=== PATIENT | female | born 1950 | race Native Hawaiian/Other Pacific Islander ===

== ENCOUNTER 2019-02-28 09:30 | Outpatient (CLI) | payer OTHER ==
[~2019-02-28 09:30] MED LIST: ALBUTEROL0.083 % IN; ALPR1TAB61 PO; ATEN50TA36 PO; CIPRO500 MG PO; CYCL10TA35 PO; ENDOCET1 TA3 PO; FLUC150T PO; FLUTMIS14 INH; FLUTMIS6 INH; MECLIZINE25 MG PO; MICROZIDE12.5 MG PO; NEURONTIN800 MG PO; ZITHROMAX500 MG PO
== END 2019-02-28 09:55 | disposition short-term general hospital (02) ==
LOC: AMB 09:30
DX: R41.82 Altered mental status, unspecified (principal); R53.1 Weakness; S09.8XXA Other specified injuries of head, initial encounter; S59.802A Other specified injuries of left elbow, initial encounter; S59.801A Other specified injuries of right elbow, initial encounter; W18.39XA Other fall on same level, initial encounter; Y93.89 Activity, other specified; Y92.018 Other place in single-family (private) house as the place of occurrence of the external cause
CPT/HCPCS: A0425; A0427

== ENCOUNTER 2020-08-19 10:11 | Inpatient (IN) | payer OTHER ==
[2020-08-19] VITALS (13 sets, daily range): BP systolic 95–130; BP diastolic 43–92; TEMP 97.6–98.7; Ht 165.1 cm; Wt 75.0 kg
[~2020-08-19] VITALS: Ht 165.1 cm; Wt 75.0 kg
[2020-08-19 10:50] LABS: PLATELET COUNT 372 K/uL (152-353)
[2020-08-19 11:10] LABS: POTASSIUM 4.2 mmol/L (3.6-5.2); SODIUM 131 mmol/L (136-145)
[2020-08-19] MEDS ORDERED: ALBUTEROL0.083 % INH (15:15)
[2020-08-19] MEDS ORDERED: NEURONTIN800 MG PO (15:15)
[2020-08-19] MEDS ORDERED: REMERON SOLTAB30 MG PO (15:18)
[2020-08-19] MEDS ORDERED: FUROSEMIDE20 MG PO (15:32)
[2020-08-19] MEDS ORDERED: MOBIC7.5 M1 PO (15:32)
[2020-08-19] MEDS ORDERED: ATEN50TA36 PO ×2 (15:34)
[2020-08-19] MEDS ORDERED: HYSINGLA ER40 MG PO (15:35)
[2020-08-19] MEDS ORDERED: LYRICA150 MG PO (15:36)
[2020-08-19] MEDS ORDERED: ALPR0.2566 PO (15:36)
[2020-08-20] VITALS (11 sets, daily range): BP systolic 111–152; BP diastolic 54–78; TEMP 97.5–99.2
[2020-08-20 03:32] LABS: PLATELET COUNT 272 K/uL (152-353)
[2020-08-21 03:53] VITALS: BP 129/71; TEMP 98.7
[2020-08-21 05:35] LABS: PLATELET COUNT 284 K/uL (152-353)
[2020-08-21 05:58] LABS: POTASSIUM 4.2 mmol/L (3.6-5.2)
[2020-08-21 08:00] VITALS: BP 122/59; TEMP 97.6
[2020-08-21 12:00] VITALS: BP 106/58; TEMP 97.9
[2020-08-21 16:00] VITALS: BP 100/48; TEMP 98.6
[2020-08-21 20:07] VITALS: BP 96/47; TEMP 98.3
[2020-08-22] VITALS: BP 127/55; TEMP 98.1
[2020-08-22 04:00] VITALS: BP 139/71; TEMP 98.5
[2020-08-22 05:57] LABS: PLATELET COUNT 276 K/uL (152-353)
[2020-08-22 06:25] LABS: POTASSIUM 3.8 mmol/L (3.6-5.2)
[2020-08-22 08:00] VITALS: BP 162/78; TEMP 97.8
[2020-08-22 12:00] VITALS: BP 108/61; TEMP 98
[2020-08-22 16:00] VITALS: BP 142/71; TEMP 97.7
[2020-08-22 20:00] VITALS: BP 167/72; TEMP 98.8
[2020-08-23 00:07] VITALS: BP 146/72; TEMP 98.2
[2020-08-23 04:00] VITALS: BP 148/61; TEMP 98.3
[2020-08-23 05:56] LABS: PLATELET COUNT 299 K/uL (152-353)
[2020-08-23 06:13] LABS: POTASSIUM 3.5 mmol/L (3.6-5.2)
[2020-08-23 08:00] VITALS: BP 166/77; TEMP 98.4
[2020-08-23 12:00] VITALS: BP 136/69; TEMP 98.1
[2020-08-23 16:00] VITALS: BP 139/68; TEMP 98.1
[2020-08-23 20:05] VITALS: BP 144/67; TEMP 98.3
[2020-08-24 00:06] VITALS: BP 142/61; TEMP 98
[2020-08-24 04:00] VITALS: BP 139/71; TEMP 97.6
[2020-08-24 05:57] LABS: PLATELET COUNT 291 K/uL (152-353)
[2020-08-24 06:10] LABS: POTASSIUM 3.5 mmol/L (3.6-5.2)
[2020-08-24 08:00] VITALS: BP 127/69; TEMP 98.1
[2020-08-24 12:00] VITALS: BP 127/69; TEMP 98.1
[2020-08-24 16:00] VITALS: BP 105/48; TEMP 98.6
== END 2020-08-24 14:09 | disposition swing bed (61) | DRG 191 ==
LOC: ED 10:11 → MED/SURG 13:15
PROVIDERS: Family Medicine; ADMIT Family Medicine; ATTEND Family Medicine
DX: J47.0 Bronchiectasis with acute lower respiratory infection (principal); J81.1 Chronic pulmonary edema; J15.1 Pneumonia due to Pseudomonas; E83.42 Hypomagnesemia; K59.09 Other constipation; J32.8 Other chronic sinusitis; R41.81 Age-related cognitive decline; R53.1 Weakness; Z99.81 Dependence on supplemental oxygen; E86.0 Dehydration
CPT/HCPCS: 36415; 80053; 81000; 82550; 82553; 83605; 83735; 84484; 85027; 87040; 87070; 87077; 87205; 87635; 93005; 94640; 94664; 94667; 94668; 94760; 96360; 96365; 96366; 99284; J1650; J1956; J2543; J3475; U0003

== ENCOUNTER 2020-08-24 14:09 | Inpatient (IN) | payer OTHER ==
[~2020-08-24] VITALS: Ht 165.1 cm; Wt 70.5 kg
[~2020-08-24 14:09] MED LIST changes: +ALBUTEROL0.083 % INH; +ALPR0.2566 PO; +FUROSEMIDE20 MG PO; +HYSINGLA ER40 MG PO; +LYRICA150 MG PO; +MOBIC7.5 M1 PO; +REMERON SOLTAB30 MG PO
[2020-08-24 19:53] VITALS: BP 135/63; TEMP 98.6
[2020-08-24 20:31] VITALS: BP 135/63; TEMP 98.6; Ht 165.1 cm; Wt 70.5 kg
[2020-08-24 21:29] VITALS: BP 135/63; TEMP 98.6
--- NOTE | 2020-08-25 04:51 | NUR ---
PATIENT HAS BEEN MORE ALERT AND ORIENTED. PATIENT IS ORIENTED TO SELF AND SITUATION. PATIENT IS ABLE TO MOVE MORE IN THE BED BUT CANNOT PULL HERSELF UP IN BED WITH OUT ASSISTANCT TIMES 2
--- NOTE | 2020-08-25 06:01 | NUR ---
PATIENT CRE SWAB COMPLETED. PATIENT RESTING AT BEDSIDE
[2020-08-25 07:38] VITALS: BP 136/59; TEMP 98.4
--- NOTE | 2020-08-25 09:45 | NUR ---
THERAPY AND PCT AT BEDSIDE, BOTH ASSISTED PATIENT TO SHOWER WITH USE OF WALKER AND STAFF REMAINED AT PATIENT'S SIDE DURING SHOWER. PATIENT TOLERATED WELL. PCT AND THERAPY ASSISTED PATIENT WITH DRYING OFF AND PLACING CLOTHING ON PATIENT. PATIENT BECAME WEAK DURING THIS TIME. MAX ASSIST WITH STAFF WITH TRANSFERRING TO RECLINER AT BEDSIDE. 2LPM NC PLACED ON PATIENT, 22G RFA FLUSHED WITH NS 10ML WITHOUT DIFFICULTY AND NS BEGAN INFUSING @ 30ML/HR WITHOUT DIFFICULTY. PATIENT DENIES ANY PAIN OR BURNING TO SITE, NO REDNESS, EDEMA OR DRAINAGE NOTED TO IV SITE AT THIS TIME. PILLOWS PLACED BEHIND PATIENT'S UPPER TORSO FOR SUPPORT. BEDSIDE TABLE AND CALL LIGHT PLACED WITHIN REACH FOR PATIENT, PATIENT INSTRUCTED TO CALL FOR ANY ASSISTANCE OR NEEDS, PT V/O UNDERSTANDING. NO S/SX OF DISTRESS NOTED DURING THIS TIME.
--- NOTE | 2020-08-25 11:55 | NUR ---
PCT ASSISTED PATIENT WITH TRANSFERRING BACK TO BED X1 PERSON ASSIST. PATIENT TOLERATED WELL. NAD NOTED WITH PATIENT.
--- NOTE | 2020-08-25 16:25 | NUR ---
PATIENT IN LOW FOWLERS POSITION RESTING QUIETLY IN BED WITH EYES CLOSED. NAD NOTED WITH PATIENT.
--- NOTE | 2020-08-25 17:40 | NUR ---
DR. NERI HERE TO SEE PATIENT, NO NEW ORDERS RECEIVED AT THIS TIME.
--- NOTE | 2020-08-25 18:05 | NUR ---
DR. NERI ORDERED PATIENT TO RECEIVE LEVAQUIN AND ZOSYN FOUR (4) MORE DAYS FOR A TOTAL OF TEN (10) DAYS AND D/C ALL ANTIBIOTICS AT THAT TIME, NOTED AND CARRIED OUT. NO NEW ORDERS RECEIVED AT THIS TIME.
[2020-08-25 20:27] VITALS: BP 133/67; TEMP 98.6
--- NOTE | 2020-08-26 00:23 | NUR ---
PATIENTS BREATHING IS STILL CONGESTED BUT THERE IS MARKED IMPROVEMENT. THE PATIENTS LEVEL OF CONSCIOUS HAS IMPROVED.
--- NOTE | 2020-08-26 03:59 | NUR ---
PATIENT IS ABLE TO PULL HERSELF UP IN BED. PATIENT IS MORE ALERT AND ABLE TO RECALL SHE IS IN A HOSPITAL. PATIENT IS ABLE TO ROLL TO THE SIDE TO HELP WITH READJUSTING. PATIENT IS ABLE TO FEED HERSELF. PATIENT HAS DENIED ANY PAIN.
--- NOTE | 2020-08-26 04:00 | NUR ---
2100: LATE GIOVANNI ARREAGA CALLED AND WAS UPDATED. GAVE ORDERS TO DRAW LABS ON MG, CMP, CBC
[2020-08-26 05:19] LABS: PLATELET COUNT 276 K/uL (152-353)
[2020-08-26 05:48] LABS: POTASSIUM 3.7 mmol/L (3.6-5.2)
[2020-08-26 08:00] VITALS: BP 155/73; TEMP 98.1
[2020-08-26 20:00] VITALS: BP 177/64; TEMP 98
--- NOTE | 2020-08-26 20:15 | NUR ---
ENTERED PATIENT'S ROOM. PATIENT LYING IN BED WATCHING TV. NAD NOTED. NC INTACT @ 2L/MIN. 16FR TOMPKINS DRAINING CLEAR, YELLOW URINE TO BEDSIDE. PATIENT HAS 22G TO RIGHT FA. NOTED TO BE LEAKING. I INFORMED PATIENT THAT I WOULD TRY TO LOOK FOR ANOTHER IV SITE. BED LOCKED AND IN LOWEST POSITION. CALL LIGHT WITHIN EASY REACH.
--- NOTE | 2020-08-26 21:40 | NUR ---
TWO ATTEMPTS MADE TO START NEW IV. FIRST ATTEMPT TO LEFT FA UNSUCCESSFUL. SECOND ATTEMPT TO LEFT WRIST SUCCESSFUL WITH 22G. FLUSHED WITH 10CC NS. PATENT AND INTACT. GOOD BLOOD RETURN NOTED. ZOSYN IVPB STARTED. PATIENT TOLERATED WELL. NO CONCERNS OR COMPLAINTS VOICED. BED LOCKED AND IN LOWEST POSITION. CALL LIGHT WITHIN EASY REACH.
--- NOTE | 2020-08-27 06:00 | NUR ---
PATIENT RESTING QUIETLY IN BED WITH EYES CLOSED. NAD NOTED. 22G TO LEFT WRIST FLUSHED WITH NS. PATENT AND INTACT. NO ERYTHEMA OR SWELLING NOTED. ZOSYN IVPB STARTED AT THIS TIME. BED LOCKED AND IN LOWEST POSITION. CALL LIGHT WITHIN EASY REACH.
[2020-08-27 08:00] VITALS: BP 157/78; TEMP 97.6
[2020-08-27 19:53] VITALS: BP 128/69; TEMP 98.1
--- NOTE | 2020-08-28 06:00 | NUR ---
PATIENT RESTING QUIETLY IN BED WITH EYES CLOSED. ZOSYN IVPB STARTED AT THIS TIME. 22G TO LEFT WRIST FLUSHED WITH NS. FLUSHED WELL WITH NO ISSUES. BED LOCKED AND IN LOWEST POSITION. CALL LIGHT WITHIN EASY REACH.
--- NOTE | 2020-08-28 07:45 | NUR ---
UPON ENTERING PATIENT'S ROOM, PATIENT WAS IN SEMI FOWLERS POSITION, RECEIVING OXYGEN VIA NC @ 2LPM, 16F TOMPKINS WITH APPROXIMATELY 250ML OF CLEAR YELLOW URINE IN TOMPKINS CATH BAG AT BEDSIDE. CALL LIGHT AND BEDSIDE TABLE WITH PERSONAL BELONGINGS WITHIN REACH, INSTRUCTED PATIENT TO CALL FOR ANY ASSISTANCE OR NEEDS, PT V/O UNDERSTANDING. PATIENT'S WATER CUP FILLED WITH ICE. PATIENT DENIES ANY OTHER NEEDS, C/O OR PAIN AT THIS TIME. NAD NOTED WITH PATIENT.
[2020-08-28 08:00] VITALS: BP 175/82; TEMP 98.3
--- NOTE | 2020-08-28 09:04 | NUR ---
08/28/20 0815 SITTING UP ON SIDE OF BED ALERT OREINTED.WEARING OXYGEN NAD NOTED.NO C/O VOICED.CC
--- NOTE | 2020-08-28 10:05 | NUR ---
PATIENT REMAINS UP IN BEDSIDE CHAIR WITH CALL LIGHT AND BEDSIDE TABLE WITHIN REACH. PATIENT DENIES ANY PAIN, NEEDS OR C/O AT THIS TIME. SON AT BEDSIDE AND PATIENT SMILING AND CONVERSING WITH HIM.
--- NOTE | 2020-08-28 14:33 | NUR ---
08/28/20 1430 PHYSICAL THERAPY STATED SHE ASSISTED PT BACK TO BED AND DONE VERY WELL DURING HER THERAPY TREATMENT.CALL LIGHT WITHIN REACH.CC
--- NOTE | 2020-08-28 15:10 | NUR ---
RECEIVED NEW ORDERS FROM PHYSICIAN TO BLADDER TRAIN PATIENT AND D/C TOMPKINS, NOTED AND CARRIED OUT.
--- NOTE | 2020-08-28 15:17 | NUR ---
EXPLAINED TO PATIENT WE WILL BEGIN BLADDER TRAINING AT THIS TIME TO REMOVE TOMPKINS CATH AND TOMPKINS IS CLAMPED AT THIS TIME. PATIENT V/O UNDERSTANDING AND DENIES ANY QUESTIONS OR C/O AT THIS TIME. PATIENT IN HIGH FOWLERS POSITION WATCHING TV. PATIENT HAS EXPRESSED HER APPRECIATION FOR THE CARE SHE HAS RECEIVED AND "EVERYONE HAS BEEN SO NICE" TO HER. SHE IS CHEERFUL AND COOPERATIVE WITH STAFF. NAD NOTED WITH PATIENT. OFFERED PATIENT A SNACK, BUT REFUSED AT THIS TIME. CALL LIGHT AND BEDSIDE TABLE WITH PERSONAL BELONGINGS WITHIN REACH. PATIENT INSTRUCTED TO NOTIFY STAFF WHEN SHE FEELS THE URGE TO URINATE, PT V/O UNDERSTANDING.
--- NOTE | 2020-08-28 18:10 | NUR ---
PATIENT'S TOMPKINS UNCLAMPED, ALLOWED URINE TO DRAIN, AND RECLAMPED. PT TOLERATED WELL.
--- NOTE | 2020-08-28 19:50 | NUR ---
TOMPKINS CLAMPED AT THIS TIME. BLADDER TRAINING EDUCATION CARRIED OUT AT THIS TIME. EDUCATED PT TO USE THE CALL LIGHT WHEN PT HAS THE URGE TO URINATE. PT. VERBALIZED UNDERSTANDING.
[2020-08-28 19:53] VITALS: BP 142/72; TEMP 98.1
[2020-08-29 08:00] VITALS: BP 152/75; TEMP 98.1
--- NOTE | 2020-08-29 08:18 | NUR ---
New Swing Bed patient and Fauzia and the IDT met with the patient and was admitted with bilaterla pneumonia, generalized weakness, , COPD, Exacerbation of Bronchitis and is 02 dependent and PT working with for deconditioning., multiple falls, and is on KELLY for bilateral pneumonia, 5'5" at 163 lbs. and is a 70YOF, IBW = 125+/-10% (112 to 138 kbs.)and kcal needs for IBW x 25 = 1400, x 30 = 1700, x 35 = 2000, x 40 = 2300 kcal/day, protein needs x 1.2 to 1.5 = 68 to 85 grams per day and fluids x 25 = 1400, x 30 = 1700, x 35 = 2000 and x 40 = 2300 ml/cc per day and is 130% of IBW and BMI at 27.12 and is overwegiht and also has a dx. of anxiety, and BP at 142/72, levaquin, Colace, Ambien, Miralax, etc.. and RD reviewed all medications. RBC, Hgb, Hct, MCHC all depreseed and CO2 elevated only eating 25% of meals per nursing recordning. ast, alt, tp and alb all depressed 5.8/24. and also has Dx. of vertigo, hyperlipidemia, veritgo, constipation, anemia, and chronic low back pain, OA. Per the patient the pneumonia seems ot be better and she is pleased with the meals, KELLY almost completed. Plans to go home, use to have Home Health Agency. RD recommendations: 1-Monitor Labs 2-Add Beneprotein TID 3-Try and increase protein if will eat to 2 x q meals 4-Add prune juice BID if will take 5-HOnor all food preferneces and state on diet card and offere substitutes with all meals 6-Add Vitamin C 500 mg BID 7-Add a MVI daily 8-Add an appeite stimualtn until eating 75% of meals
--- NOTE | 2020-08-29 08:25 | NUR ---
PT A/O X3 IN NAD AT THIS TIME. SITTING UP IN BED AFTER FINISHING BREAKFAST. PT STATES SHE "FEELS STIFF". ADVENTITIOUS LUNG SOUNDS NOTED, PT STATES THE AMOUNT OF SPUTUM SHE IS COUGHING UP IS LESS THAN ON ADMIT. 22G SL TO LW FLUSHED AND NOTED TO BE PATENT, FREE FROM REDNESS, WARMTH AND DRAINAGE, DRESSING CLEAN, DRY AND INTACT. EDUCATION PROVIDED ON BLADDER TRAINING. PT STATES SHE DOES NOT FEEL THE URGE TO VOID. UNCLAMPED TOMPKINS -325ML CLEAR URINE DRAINED INTO BAG. BAG EMPTIED AND MEASURED, TOMPKINS RECLAMPED. PT ASSISTED ONTO BSC FOR BM. CALL LIGHT PROVIDED, PT REMINDED TO CALL FOR ASSIST BACK TO BED. PT VERBALIZED UNDERSTANDING.
--- NOTE | 2020-08-29 08:37 | NUR ---
PT PROVIDED OWN PERICARE THEN ASSISTED INTO CHAIR BY TECH. PT VERBALIZES DESIRE FOR SHOWER, TECH TO PROVIDE ASSIST.
--- NOTE | 2020-08-29 10:40 | NUR ---
PT CALLED TO HAVE TOMPKINS UNCLAMPED- 200ML CLEAR URINE DRAINED VIA GRAVITY INTO BAG AND THEN TUBING WAS RECLAMPED.
--- NOTE | 2020-08-29 13:00 | NUR ---
PT CALLED TO HAVE TOMPKINS UNCLAMPED. 600ML CLEAR URINE DRAINED INTO GRAVITY BAG. TUBING RECLAMPED.
--- NOTE | 2020-08-29 17:00 | NUR ---
PT CALLED TO HAVE BLADDER UNCLAMPED- 265ML DRAINED INTO BAG THEN WAS RECLAMPED.
--- NOTE | 2020-08-29 17:00 | NUR ---
PT CALLED TO HAVE TOMPKINS TUBING UNCLAMPED. 265ML CLEAR, URINE DRAINED TO GRAVITY BAG. TUBE RECLAMPED.
[2020-08-29 20:06] VITALS: BP 119/62; TEMP 98.3
--- NOTE | 2020-08-30 05:35 | NUR ---
08/29/20 2000: PT AWAKE ALERT, DENIES PAIN AT THIS TIME. NO DISTRESS NOTED. BLADDER TRAINING IN PROGRESS.
--- NOTE | 2020-08-30 05:36 | NUR ---
PT HAS SLEPT WELL DURING THIS SHIFT. NO COMPLAINTS VOICED.
--- NOTE | 2020-08-30 07:30 | NUR ---
TOMPKINS TUBING NOTED TO BE UNCLAMPED, URINE IN BAG. RECLAMPED TUBING AND INSTRUCTIONS GIVEN TO PT TO CALL WHEN SHE FELT THE URGE TO VOID.
--- NOTE | 2020-08-30 07:33 | NUR ---
PT ASSISTED UP TO BSC FOR BM AND HAD INCONTINENT EPISODE ON HERSELF AND THE FLOOR. PT STATES SHE DOESN'T FEEL LIKE SHE HAS UPSET STOMACH AND STATES SHE THINKS SHE WAITED TOO LONG TO GET UP. TECH AT BEDSIDE ASSISTING PT WITH [facility].
[2020-08-30 08:00] VITALS: BP 136/75; TEMP 98.1
--- NOTE | 2020-08-30 11:00 | NUR ---
TUBING UNCLAMPED- PT VOIDED 300CC HAZY, YELLOW URINE AND THEN RECLAMPED.
--- NOTE | 2020-08-30 18:33 | NUR ---
PT SITTING UP IN BED IN NAD AFTER EATING DINNER. PT STATES SHE FEELS BETTER AND ENJOYED HER DINNER. NO NEEDS OR C/O PAIN VERBALIZED AT THIS TIME. CALL LIGHT IN EASY REACH. BED LOW, LOCKED, SR UP X2 FOR SAFETY.
--- NOTE | 2020-08-30 18:50 | NUR ---
BLADDER TRAINING COMPLETED. 16F TOMPKINS DC WITH TIP INTACT- PT CAROLINA WELL. 22G SL TO RYDER Britt WITH TIP INTACT.
[2020-08-30 19:51] VITALS: BP 146/69; TEMP 98.3
--- NOTE | 2020-08-31 00:15 | NUR ---
PATIENT IS RESTING QUIETLY, BREATHS ARE REGULAR NON LABORED
--- NOTE | 2020-08-31 03:57 | NUR ---
PATIENT IS RESTING IN BD. BREATHING IS REGULAR NON LABORED
--- NOTE | 2020-08-31 07:30 | NUR ---
REC'D REPORT FROM SARMAD CLEMONS RN. IN TO CHECK ON PT. PT NOTED TO UP ON BSC AT THIS TIME. PT DENIES ANY C/O OR NEEDS AND STATES "I'LL BE DONE IN A FEW MINUTES AND I'LL CALL" REMINDED PT TO NOT GET UP UNTIL ONE OF US ARE IN HERE. PT CALL LIGHT WITHIN REACH.
--- NOTE | 2020-08-31 07:48 | NUR ---
ASSISTED PT BACK TO BED FROM BSC, EXTENSIVE ASSIST NEEDED TO PIVOT PT FROM BSC TO BED, PT POSITIONED HERSELF UP IN BED CHRISTIANO ASSISTANCE, NAD NOTED, NO FURTHER NEEDS AT THIS TIME, CALL LIGHT WITHIN REACH, WILL CONTINUE TO MONITOR
[2020-08-31 08:00] VITALS: BP 136/64; TEMP 98.1
--- NOTE | 2020-08-31 08:45 | NUR ---
PT AM ASSESSMENT COMPLETED. REKHA NOTED TO BILAT LUNG. PT ALERT AND ORIENTED X4. TRACE AMOUNT OF SWELLING NOTED TO RLE. PEDAL PULSES EQUAL BILAT, RAD PULSE EQUAL BILAT. PT DENIES SOB. PAULINE,RT IN TO GIVE RESP TX. PT TOOK PO MEDS WITHOUT DIFFICULTY.HR NOTED TO BE REGULAR ON AUSCULTATION.
--- NOTE | 2020-08-31 10:00 | NUR ---
SUPERVISED PT PUSHING UP FROM BSC TO WALKER AND AMBULATING BACK TO BED. PT REQUIRED NO ASSISTANCE WITH STANDING OR AMBULATING BACK TO BED. PT REQUIRED NO ASSISTANCE WITH GETTING BACK IN BED. PT ABLE TO PUT LEGS UP ON THE BED HERSELF AND SCOOT UP IN BED HERSELF. NO SET UP HELP GIVEN.
--- NOTE | 2020-08-31 14:00 | NUR ---
PT LAYING IN BED IN HF WITH O2 ON AT 2LPM NC RESTING QUIETLY WITH EYES CLOSED. NAD NOTED. EVEN RISE AND FALL OF CHEST NOTED.
[2020-08-31 20:00] VITALS: BP 160/81; TEMP 97.7
[2020-09-01 08:00] VITALS: BP 165/77; TEMP 97.6
[2020-09-01 20:00] VITALS: BP 149/70; TEMP 97.7
--- NOTE | 2020-09-01 20:40 | NUR ---
PATIENT IS A&O X4 DURING PM ASSESSMENT, PATIENT IS PLEASANT, COOPERATIVE, CHEERFUL AND TALKATIVE WITH STAFF. PATIENT DENIES ANY NEEDS OR C/O AT THIS TIME. PATIENT IN HIGH FOWLERS POSITION AND V/O SHE IS WATCHING A MOVIE. NAD NOTED WITH PATIENT AT THIS TIME.
--- NOTE | 2020-09-01 21:35 | NUR ---
WHILE ADMINISTERING PM MEDICATIONS, PATIENT REQUESTED A XANAX TO HELP HER "RELAX AND REST', SAME PROVIDED AT THIS TIME. WILL CONTINUE TO MONITOR FOR EFFECTIVE THERAPEUTIC TX. CALL LIGHT AND BEDSIDE TABLE WITHIN PATIENT'S REACH. PATIENT INSTRUCTED TO CALL FOR ANY ASSISTANCE OR NEEDS, PT V/O UNDERSTANDING.
[2020-09-02 08:00] VITALS: BP 105/53; TEMP 97.6
--- NOTE | 2020-09-02 09:51 | NUR ---
REACHED OUT TO DR. NERI ABOUT BREAKTHROUGH PAIN MEDS FOR PATIENT. VO GIVEN FOR IBUPROFEN, AND TO CHANGE HYSINGLA TO AM DOSE DAILY. LAB ORDERS ALSO GIVEN.
--- NOTE | 2020-09-02 10:37 | NUR ---
PT ASSISTED UP TO CHAIR TO SIT FOR AWHILE. PT CAROLINA WELL, IN NAD. STATES SHE IS READY TO GO HOME SOON POSSIBLE. PT NOTED TO BE STRONGER WITH TRANSFERS AND HAS INCREASED HER ACTIVITY TO WALKING WITH WALKER AND STANDBY ASSIST TO BATHROOM INSTEAD OF USING A BSC. PT MEALS DELIVERED TO ROOM. PT PROVIDES HER OWN MEAL TRAY SET UP AND FEEDING.
--- NOTE | 2020-09-02 10:58 | NUR ---
PT DID NOT WANT A TX. THIS AM. NO RESPIRATORY DISTRESS NOTED.
[2020-09-02 11:13] LABS: POTASSIUM 4.3 mmol/L (3.6-5.2)
[2020-09-02 19:45] VITALS: BP 152/72; TEMP 97.7
--- NOTE | 2020-09-02 19:50 | NUR ---
PT AWAKE,ALERT, C/O PAIN IN NECK, SHOULDERS,AND GENERALIZED. PT EXPRESSED BEING UPSET ABOUT NOT BEING ABLE TO GO HOME AND HAVING TO WAIT UNTIL NEXT WEEK. PT HAS O2@2LNC. CONTINUE TO HEAR SOME RHONCHI IN LOWER LOBES. PT DENIES RESPIRATORY DISTRESS.
--- NOTE | 2020-09-03 00:09 | NUR ---
PT SLEEPING ON LEFT SIDE. NO DISTRESS NOTED. PT'S RESPIRATIONS UNLABORED.
--- NOTE | 2020-09-03 04:05 | NUR ---
PT RESTING QUIETLY. NO DISTRESS NOTED. RESPIRATIONS UNLABORED.
[2020-09-03 08:00] VITALS: BP 141/58; TEMP 98.2
[2020-09-03 20:00] VITALS: BP 145/80; TEMP 98.1
--- NOTE | 2020-09-04 02:12 | NUR ---
PATIENT IS RESTING QUIETLY, BREATHS ARE ENEN AND NON LABORED
--- NOTE | 2020-09-04 03:23 | NUR ---
PATIENT IS ABLE TO AMBULATE IN BED HERSELF. PATIENT IS STANDBY ASSIST TO THE BSC
--- NOTE | 2020-09-04 04:50 | NUR ---
PATIENT DENIES ANY PAIN. PATIENT EXPRESSES READINESS TO GO HOME
[2020-09-04 07:00] VITALS: BP 161/75; TEMP 97.8
--- NOTE | 2020-09-04 08:50 | NUR ---
AM MEDICATIONS ADMINISTERED TO PATIENT WHOLE WITHOUT DIFFICULTY. PATIENT DENIES ANY NEEDS OR C/O AT THIS TIME. CALL LIGHT WITHIN REACH ALONG WITH BED SIDE TABLE WITH PERSONAL BELONGINGS. PATIENT IN HIGH FOWLERS POSITION WATCHING TV. QUESTIONED PATIENT IF SHE WOULD LIKE TO RECEIVE A SHOWER TODAY, SHE V/O SHE WOULD LET THE STAFF KNOW.
--- NOTE | 2020-09-04 09:45 | NUR ---
PATIENT'S SON, SAQIB, IS AT BEDSIDE WITH PATIENT. PATIENT APPEARS TO ENJOYING HER VISIT. SHE IS SMILING, LAUGHING AND CONVERSING WITH SON HE SAT AT HER BEDSIDE. BOTH DENY ANY NEEDS OR C/O AT THIS TIME.
--- NOTE | 2020-09-04 13:20 | NUR ---
PATIENT C/O OF BACK PAIN, IBUPROFEN 800MG X1 TAB GIVEN PER PHYSICIAN ORDERS. PATIENT DESCRIBES THE PAIN ACHING AND 4/10 ON NUMERIC PAIN SCALE. ADMINSTERED MEDICATION AND PATIENT REPOSITIONED IN BED BY HERSELF TO SEMI FOWLERS POSITION AND ADVISES SHE PLANS TO REST.
--- NOTE | 2020-09-04 14:36 | NUR ---
PATIENT IN SEMI FOWLERS POSITION AND V/O PAIN TO BACK IS "BETTER". NO S/SX OF DISTRESS NOTED WITH PATIENT AT THIS TIME.
--- NOTE | 2020-09-04 18:12 | NUR ---
PATIENT IS ABLE TO AMBULATE TO BATHROOM WITH RAISED TOILET SEAT AND IN ROOM WITH MINIMAL ASSIST FROM STAFF.
[2020-09-04 20:00] VITALS: BP 137/68; TEMP 97.8
--- NOTE | 2020-09-04 21:25 | NUR ---
PT AWAKE AND ORIENTED SITTING UP IN BED WITH NO ACUTE DISTRESS OR PAIN NOTED, TALKATIVE WITH FOUNDRY SUPERVISOR. RESP RATE NONLABORED, O2 IN USE VIA NC. GAVE NIGHTLY MEDICATIONS, PO MEDS GIVEN TO PT, NOTE PT HELD MEDICATION CUP AND HER DRINK PER SELF(TOOK PO MEDS PER SELF), GAVE PRN XANAX 0.25MG PO PRN PER PT REQUEST. WILL MONITOR CLOSELY, RAILS UP, BED IN LOW POSITION, CALL LIGHT IN REACH, ENCOURAGED TO CALL NEEDED PT ACKNOWLEDGES UNDERSTANDING.
--- NOTE | 2020-09-04 23:10 | NUR ---
RESTING WITH EYES CLOSED IN POSITION OF COMFORT, NO S/S OF DISTRESS NOTED, WILL MONITOR, RAILS UP, BED IN LOW POSITION, CALL LIGHT IN REACH.
--- NOTE | 2020-09-05 01:10 | NUR ---
CALL LIGHT ANSWERED, PT FOUND AWAKE AND ORIENTED SITTING UP ON SIDE OF BED. PT USED WALKER WITH STAND BY ASSIST TO AMBULATE TO AND FROM BATHROOM WITH SOME WEAKNESS NOTED, URINATED 750ML YELLOW URINE. PT C/O CONSTANT PAIN TO HER BACK THAT IS A "6 OR 7" ON SCALE, GAVE IBUPROFEN 600MG PO PRN FOR PAIN. DENIES ANY OTHER NEEDS, NOTE PT HELD MEDICATION CUP PER SELF AND HELD DRINK TO TAKE MEDICATION WITH NO ASSIST. WILL MONITOR, RAILS UP, BED IN LOW POSITION, CALL LIGHT IN REACH, ENCOURAGED TO CALL NEEDED PT ACKNOWLEDGES UNDERSTANDING.
--- NOTE | 2020-09-05 02:00 | NUR ---
RESTING IN POSITION OF COMFORT WITH EYES CLOSED, NO S/S OF PAIN OR DISTRESS NOTED, NO REACTIONS NOTED TO PRN MEDICATION, WILL MONITOR CLOSELY, RAILS UP, BED IN LOW POSITION, CALL LIGHT IN REACH.
--- NOTE | 2020-09-05 05:25 | NUR ---
RESTING WITH EYES CLOSED, NO S/S OF PAIN OR DISTRESS NOTED, RESP RATE NONLABORED, WILL MONITOR CLOSELY, RAILS UP, BED IN LOW POSITION, CALL LIGHT IN REACH.
[2020-09-05 08:00] VITALS: BP 149/73; TEMP 98.2
--- NOTE | 2020-09-05 08:59 | NUR ---
IDT team met with patient yesterday and Ms. Cage - the Person over all; the Coordinator and leader of the IDT (Interdisciplinary Team Meeting) the meeting talked with the resdient and all disciplines present and reasidne tis ready to go home, she eats what she wants she stated, likes soft meats and some meat need anthony more tender and nursing is going to communicate with the FS department. Son joanne was in the meeting, Dr. Piedra and Fauzia needs she needs to increase her endurance before she goes home.
--- NOTE | 2020-09-05 11:13 | NUR ---
PT AMBULATING TO RM 114 VIA GAIT BELT AND WALKER ASSISTED BY PHYSICAL THERAPY FOR SHOWER. PT AMBULATING WELL.
--- NOTE | 2020-09-05 11:39 | NUR ---
PT AMBULATING BACK TO HER ROOM FROM ROOM 114 VIA GAIT BELT AND WALKER. ASSISTED BY PHYSICAL THERAPY.
--- NOTE | 2020-09-05 15:35 | NUR ---
PT WANTING TO SIT IN CHAIR BESIDE BED. PT AMBULATED VIA WALKER TO CHAIR WITHOUT DIFFICULTY. EDUCATED PT TO CALL IF WANTING TO GO BACK TO BED. CALL LIGHT WITHIN REACH.
[2020-09-05 20:00] VITALS: BP 143/65; TEMP 97.9
--- NOTE | 2020-09-05 20:58 | NUR ---
PT AWAKE, ALERT, AND ORIENTED SITTING UP IN BED WATCHING TV WITH NO ACUTE DISTRESS NOTED. RESP RATE NONLABORED, O2 IN USE VIA NC, SKIN WARM AND DRY. PT TALKATIVE WITH MASTER RIGGER TELLING MASTER RIGGER ABOUT THE GOOD SUPPER SHE HAD TONIGHT. GAVE NIGHTLY MEDICATIONS AND ALSO GAVE XANAX .25MG PRN PER PT REQUEST. GAVE IBUPROFEN 600MG TAB PO PRN AT 2103 FOR C/O CONSTANT PAIN TO BACK THAT IS A "6" ON SCALE OF 0-10. HANDED PT BOTTLE OF WATER AND HER MEDICATIONS IN CUP PT TOOK MEDS WITH NO OTHER ASSIST. DENIES ANY OTHER NEEDS, RAILS UP, BED IN LOW POSITION, CALL LIGHT IN REACH, ENCOURAGED TO CALL NEEDED, PT ACKNOWLEDGES UNDERSTANDING.
--- NOTE | 2020-09-05 22:18 | NUR ---
PT RESTING IN BED WITH EYES CLOSED, NO S/S OF PAIN OR DISTRESS NOTED, NO S/S OF REACTIONS OR PAIN SINCE PRN IBUPROFEN AND XANAX GIVEN. WILL MONITOR, RAILS UP, BED IN LOW POSITION, CALL LIGHT IN REACH.
--- NOTE | 2020-09-05 23:40 | NUR ---
CONTINUES TO REST WITH EYES CLOSED, NO DISTRESS NOTED.
--- NOTE | 2020-09-06 01:20 | NUR ---
PT RESTING IN BED ON R SIDE WITH EYES CLOSED, NO S/S OF PAIN OR DISTRESS NOTED, RESP RATE NONLABORED, O2 IN USE VIA NC, WILL MONITOR CLOSELY, RAILS UP, BED IN LOW POSITION, CALL LIGHT IN REACH.
--- NOTE | 2020-09-06 05:16 | NUR ---
RESTING WITH EYES CLOSED IN POSITION OF COMFORT, NO S/S OF PAIN OR DISTRESS NOTED, WILL MONITOR, RAILS UP, BED IN LOW POSITION, CALL LIGHT IN REACH.
[2020-09-06 08:00] VITALS: BP 151/72; TEMP 98.7
--- NOTE | 2020-09-06 08:20 | NUR ---
PT SITTING UP IN BED EATING BREAKFAST. NAD NOTED. PT TOOK AM MEDS WITHOUT DIFFICULTY. PT HAS NO COMPLAINTS OR REQUESTS AT THIS TIME. BED LOW AND LOCKED. CALL LIGHT WITHIN REACH.
--- NOTE | 2020-09-06 10:43 | NUR ---
PT IN HF POSITION. NAD NOTED. PT HAS NO COMPLAINTS OR REQUESTS AT THIS TIME. BED LOW AND LOCKED. CALL LIGHT WITHIN REACH.
--- NOTE | 2020-09-06 14:56 | NUR ---
PT C/O OF BACK PAIN A 6 ON THE 0-10 PAIN SCALE. ADMINISTERED PRN PAIN MEDS, SEE EMAR. NAD NOTED. NO OTHER COMPLAINTS OR REQUESTS AT THIS TIME. BED LOW AND LOCKED. CALL LIGHT WITHIN REACH.
--- NOTE | 2020-09-06 16:10 | NUR ---
PT SITTING IN HF WITH TV ON. NAD NOTED. PT HAS NO COMPLAINTS OR REQUESTS AT THIS TIME. BED LOW AND LOCKED. CALL LIGHT WITHIN REACH.
--- NOTE | 2020-09-06 17:53 | NUR ---
PT SITTING IN BED IN HF POSITION WITH TV ON. NAD NOTED. PT HAS NO COMPLAINTS OR REQUESTS AT THIS TIME. BED LOW AND LOCKED. CALL LIGHT WITHIN REACH.
[2020-09-06 20:00] VITALS: BP 144/68; TEMP 98.2
--- NOTE | 2020-09-06 20:10 | NUR ---
CALL LIGHT ANSWERED, PT FOUND AWAKE SITTING UP ON SIDE OF BED WITH NO ACUTE DISTRESS NOTED. ALERT AND ORIENTED, TALKATIVE WITH BALANCE STAFF INSPECTOR AND PLEASANT. STOOD IN ROOM WITH PT SHE AMBULATED TO AND FROM BATHROOM WITH WALKER(USES ELEVATED TOILET SEAT IN BATHROOM), GAIT STEADY BUT PT WEAK, BALANCE STAFF INSPECTOR ONLY GAVE STAND BY SUPERVISION. BACK IN BED WATCHING TV, BROUGHT PT WATER AND ICE PER REQUEST. WILL MONITOR CLOSELY, RAILS UP, BED IN LOW POSITION, CALL LIGHT IN REACH, ENCOURAGED TO CALL NEEDED PT ACKNOWLEDGES UNDERSTANDING.
--- NOTE | 2020-09-06 21:18 | NUR ---
PT REMAINS AWAKE SITTING UP RIGHT IN BED WATCHING TV AND TALKING WITH WIREWORKER. GAVE NIGHTLY MEDICATION, PT GIVEN MEDS IN MED CUP AND PT GOT HER DRINK ON HER OWN TOOK MEDICATIONS WITH ONLY SOME SET UP HELP. ALSO GAVE XANAX 0.25MG PO PRN PER PT REQUEST TO HELP CALM HER SO SHE CAN SLEEP, GAVE IBUPROFEN 600MG PO PRN FOR C/O CONSTANT PAIN TO BACK THAT IS A 6 OR 7 ON SCALE NOTE PT HAS CHRONIC BACK ISSUES. ENCOURAGED TO CALL NEEDED, RAILS UP, BED IN LOW POSITION, CALL LIGHT IN REACH.
--- NOTE | 2020-09-06 23:15 | NUR ---
AWAKE WATCHING TV WITH NO DISTRESS OR PAIN NOTED, WILL MONITOR CLOSELY, RAILS UP, BED IN LOW POSITION.
--- NOTE | 2020-09-07 01:00 | NUR ---
RESTING IN BED WITH EYES CLOSED, NO S/S OF PAIN OR DISTRESS NOTED, RESP RATE NONLABORED, O2 IN USE VIA NC, CALL LIGHT IN REACH, WILL MONITOR CLOSELY, RAILS UP, BED IN LOW POSITION.
--- NOTE | 2020-09-07 04:10 | NUR ---
CALL LIGHT ANSWERED AND PT FOUND AWAKE WITH NO ACUTE DISTRESS NOTED, DENIES ANY PAIN OR PROBLEMS, RESP RATE NONLABORED, O2 IN USE VIA NC. STAND BY SUPERVISION WHILE PT USED WALKER TO AMBULATE TO AND FROM BATHROOM, NO ACUTE PROBLEMS NOTED. PT NOW BACK IN BED STATES SHE HAS SLEPT GOOD. WILL MONITOR CLOSELY, RAILS UP, CALL LIGHT IN REACH, ENCOURAGED TO CALL NEEDED PT ACKNOWLEDGES UNDERSTANDING.
[2020-09-07 08:00] VITALS: BP 129/67; TEMP 97.4
--- NOTE | 2020-09-07 18:54 | NUR ---
i spoke with pt at bedside today to inquire about dc plans. She stated her son Isaiah [phone] lives next door and is able to stay with her at night. She stated she would need a wheelchair and walker for home use. She also requested home health for occupational and physical therapy. Her daughter Elzbieta Ontiveros [phone] arrived to visit and requested [facility] for her home services and pt was in agreement.
[2020-09-07 20:22] VITALS: BP 158/70; TEMP 98.3
--- NOTE | 2020-09-07 20:34 | NUR ---
PT AWAKE, ALERT. DENIES PAIN AT THIS TIME. PT STATED SHE WAS BREATHING BETTER. UPPER LOBES CLEAR TO AUSCULTATION, DIMINISHED IN LOWER LOBES. NO RHONCHI OR WHEEZING NOTED. O2 AT 2L NC IN USE.
--- NOTE | 2020-09-08 02:12 | NUR ---
PT SLEEPING WELL. NO RESPIRATORY DISTRESS NOTED.
[2020-09-08 08:00] VITALS: BP 146/66; TEMP 98
--- NOTE | 2020-09-08 08:00 | NUR ---
PATIENT REQUESTED IBUPROFEN ALONG WITH MORNING MEDICATIONS. PRN IBUPROFEN GIVEN PER MD ORDERS.
--- NOTE | 2020-09-08 10:09 | NUR ---
PATIENT UP IN SHOWER. NAD NOTED. STUDENT NURSE HELPING PATIENT WITH SHOWER. PATIENT ABLE TO BATH SELF WITH MINIMAL ASSISTANCE. PATIENT ABLE TO DRY AND DRESS SELF WITH MINIMAL ASSISTANCE.
[2020-09-08 20:10] VITALS: BP 145/62; TEMP 98.3
--- NOTE | 2020-09-09 01:08 | NUR ---
09/08/20 2000: PT COMING OUT OF BATHROOM USING WALKER. DENIES DISCOMFORT AT THIS TIME. RESPIRATIONS UNLABORED. PT ORIENTATED TO PERSON PLACE, TIME AND SITUATION. STATED "I'M JUST READY TO GO HOME."
--- NOTE | 2020-09-09 01:11 | NUR ---
09/09/20 0000: PT RESTING QUIETLY. NO RESPIRATORY DISTRESS NOTED.
[2020-09-09 06:38] LABS: POTASSIUM 4.4 mmol/L (3.6-5.2)
[2020-09-09 08:00] VITALS: BP 164/74; TEMP 97.9
--- NOTE | 2020-09-09 08:00 | NUR ---
ASSISTED PT TO BR. PT AMBULATED TO BR WITH WALKER . ONLY SET UP HELP WITH EQUIPMENT REQUIRED PER NURSE AT THIS TIME. PT TOELRATED WELL AND ASSITED BACK TO BED WITHOUT ANY PROBLEMS.
--- NOTE | 2020-09-09 10:30 | NUR ---
RX FOR WHEELCHAIR AND WALKER GIVEN TO PT'S DAUGHTER BETO AT THIS TIME. DAUGHTER ARRANGING FOR PT AT HOME PRIOR DISCHARGE DATE.
--- NOTE | 2020-09-09 11:00 | NUR ---
INFORMED BY DEE DEE IN [facility] THAT PT'S DISCHARGE DATE HAD BEEN CHANGED TO 09-12-20 DUE TO INS. PT'S DAUGHTER AWARE AND INFORMED PER DEE DEE IN [facility].
--- NOTE | 2020-09-09 11:45 | NUR ---
PT NOTED TO BE AMBULATING IN HALLWAY WITH JUSTICE FROM THERAPY. PT USING WALKER AND GAIT BELT INTACT. PT NOTED TO BE TOLERATING WELL NO ACUTE DISTRESS NTOED.
--- NOTE | 2020-09-09 14:03 | NUR ---
CALLED TO ROOM PER PT PT CO LEFT SHOULDER PAIN AND REQUESTED 2 TYLENOL AT THIS TIME. PT REC'D MEDS PER MD ORDERS. PT SITTING UP IN BED DOING CROSSWORD PUZZLE.
[2020-09-09 20:00] VITALS: BP 132/67; BP 137/77; TEMP 98.1
[2020-09-10 08:00] VITALS: BP 130/68; TEMP 97.5
--- NOTE | 2020-09-10 10:05 | NUR ---
PATIENT IS WALKING DOWN THE GARCIA WITH PHYSICAL THERAPY. PATIENT IS USING THE WALKER WHEN AMBULATING WITH PHYSICAL THERAPY. PATIENT IS TOLERATING PT WELL.
--- NOTE | 2020-09-10 19:30 | NUR ---
CALLED TO PATIENTS ROOM TO ASSIST TO BATHROOM. PATIENT SITTING UP ON THE SIDE OF THE BED PUTTING HER SOCKS ON. PATIENT INDEPENDENTLY AMBULATED WITH WALKER TO BATHROOM AND BACK TO THE SINK WITHOUT ANY DIFFICULTY. PATIENT BRUSHED HER TEETH AND THEN AMBULATED BACK TO BED. NO ACUTE DISTRESS NOTED AT THIS TIME OR ANY COMPLAINTS AT THIS TIME. CALL LIGHT WITHIN REACH. WILL CONTINUE TO MONITOR.
[2020-09-10 20:00] VITALS: BP 151/71; TEMP 98.2
--- NOTE | 2020-09-10 21:40 | NUR ---
IN PATIENTS ROOM TO GIVE SCHEDULED NIGHT TIME MEDICATIONS. PATIENT REQUESTING IBUPROFEN FOR "MILD BACK PAIN WITH PRS OF 2" AND XANAX FOR "ANXIETY AND SLEEP", BOTH ARE ORDERED PRN FOR PATIENT. PATIENT GIVEN HER PO SCHEDULED MEDICATIONS, IBUPROFEN AND XANAX ORDERED AND PATIENT TOLERATED MEDS WELL. CALL LIGHT WITHIN REACH. WILL CONTINUE TO MONITOR.
[2020-09-11 08:00] VITALS: BP 144/74; TEMP 98
--- NOTE | 2020-09-11 08:00 | NUR ---
LATE ENTRY 09/10/20- PATIENT WAS PLEASENT THROUGHOUT THE DAY AND PARTICIPATED WELL WITH PHYSICAL THERAPY. PATIENT ALSO SEVERAL TIMES THROUGHOUT THE DAY CALLS FOR SUPERVISION ONLY TO GO TO THE BATHROOM. WHEN IN THE ROOM PATIENT CAN SIT UP AT THE BEDSIDE AND USES THE WALKER TO PULL UP TO A STANDING POSITION AND AMBULATES ON HER TO THE BATHROOM. PATIENT IS ABLE TO VOID AND WIPE HERSELF AND THEN AMBULATES BACK TO THE SINK TO WASH HER HANDS AND DRY THEM AMBULATING BACK TO HER BED W/O ASSISTANCE. WHEN SHE GETS BACK IN THE BED SHE PUTS ON HER O2 CORRECTLY AND REPOSITIONS HERSELF COMFORTABLY IN THE BED TOLERATED. NO ACUTE DISTRESS NOTED. PATIENT DOES GET A LITTLE BIT ANXIOUS WHEN CLOSING THE DOOR, PATIENT PREFERS FOR HER DOOR TO REMAIN PARTIALLY OPEN.
[2020-09-11 20:25] VITALS: BP 146/77; TEMP 98.4
--- NOTE | 2020-09-12 05:25 | NUR ---
PATIENT DENIES ANY PAIN. PATIENT ASKED FOR A SLEEP AID LAST NIGHT AND DR NERI REORDERED AMBIEN. PATIENT REPORTS RESTING WELL FOR THE REST OF THE NIGHT
--- NOTE | 2020-09-12 07:56 | NUR ---
IDT team met with the patient and she is pleased with all, no negative comments.
[2020-09-12 08:00] VITALS: BP 136/68; TEMP 98
--- NOTE | 2020-09-12 08:45 | NUR ---
UPON ENTERING PATIENT'S ROOM, PATIENT WAS IN HIGH FOWLERS POSITION WATCHING TV AND EATING BREAKFAST. AM MEDICATIONS ADMINISTERED AND PATIENT WAS ABLE TO TAKE MEDICATIONS WHOLE WITHOUT DIFFICULTY. NAD NOTED WITH PATIENT AT THIS TIME. AM ASSESSMENT COMPLETED AT THIS TIME. PATIENT DENIES ANY NEEDS OR C/O AT THIS TIME. CALL LIGHT AND BEDSIDE TABLE WITHIN REACHING DISTANCE. PATIENT ENCOURAGED TO CALL FOR ANY ASSISTANCE OR NEEDS, PT V/O UNDERSTANDING.
--- NOTE | 2020-09-12 10:40 | NUR ---
RECEIVED NEW ORDERS FOR DISCHARGE FROM PHYSICIAN. PATIENT GIVEN DISCHARGE INSTRUCTIONS AND REVIEWED SAME WITH PATIENT. ALSO PROVIDED TO PATIENT & PATIENT'S DAUGHTER HOME MEDICATIONS WITH INSTRUCTIONS AND ADMINISTRATIONS INSTRUCTIONS. PATIENT & DAUGHTER BETO, V/O UNDERSTANDING AND DENY ANY OTHER NEEDS OR C/O. ASSISTED PATIENT TO WHEELCHAIR AND TAKEN TO PATIENT'S DAUGHTER, BETO'S POV AND ASSISSTED WITH TRANSFERRING TO SAME. PATIENT TOLERATED SAME. NAD NOTED WITH PATIENT AT THIS TIME.
== END 2020-09-12 10:45 | disposition home health service (06) | DRG 179 ==
LOC: MED/SURG 14:09
PROVIDERS: ADMIT Family Medicine; ATTEND Family Medicine
DX: J15.1 Pneumonia due to Pseudomonas (principal); J47.9 Bronchiectasis, uncomplicated; Z99.81 Dependence on supplemental oxygen; R53.81 Other malaise; G62.9 Polyneuropathy, unspecified; M62.81 Muscle weakness (generalized); R26.81 Unsteadiness on feet; Z74.1 Need for assistance with personal care; M54.5 Low back pain; F41.9 Anxiety disorder, unspecified; K59.00 Constipation, unspecified; E83.42 Hypomagnesemia; M19.90 Unspecified osteoarthritis, unspecified site; D64.9 Anemia, unspecified; I10 Essential (primary) hypertension; Z91.81 History of falling; E78.5 Hyperlipidemia, unspecified
CPT/HCPCS: 36415; 80048; 80053; 83735; 85027; 87081; 94640; 94664; 94668; 94760; J1650; J2543

== ENCOUNTER 2021-12-03 13:45 | Inpatient (IN) | payer OTHER ==
[~2021-12-03] VITALS: Ht 165.1 cm; Wt 76.3 kg
[~2021-12-03 13:45] MED LIST changes: -REMERON SOLTAB30 MG PO; +REMERON30 MG PO
[2021-12-03 15:43] LABS: PLATELET COUNT 258 K/uL (152-353)
[2021-12-03 16:06] LABS: POTASSIUM 3.7 mmol/L (3.6-5.2)
[2021-12-03 16:58] VITALS: BP 147/64; TEMP 97.9; Ht 165.1 cm; Wt 76.3 kg
[2021-12-03] MEDS ORDERED: ALLER-TEC10 MG PO (18:02)
[2021-12-03] MEDS ORDERED: IPRATROPIUM/ INH (18:07)
[2021-12-03] MEDS ORDERED: LISI5TAB10 PO (18:11)
[2021-12-03] MEDS ORDERED: ALBUTEROL0.083 % INH (18:14)
[2021-12-03 20:00] VITALS: BP 158/80; TEMP 98.1
[2021-12-04] VITALS: BP 159/74; TEMP 97.4
[2021-12-04 04:00] VITALS: BP 150/85; TEMP 97.5
[2021-12-04 04:37] LABS: PLATELET COUNT 297 K/uL (152-353)
[2021-12-04 07:40] VITALS: BP 153/79; TEMP 97.6
[2021-12-04 11:52] VITALS: BP 156/89; TEMP 98.3
[2021-12-04 15:39] VITALS: BP 127/60; TEMP 98.3
[2021-12-04 20:00] VITALS: BP 144/70; TEMP 98.3
[2021-12-05 00:02] VITALS: BP 118/55; TEMP 98.3
[2021-12-05 04:00] VITALS: BP 165/64; TEMP 98.4
[2021-12-05 07:54] VITALS: BP 137/66; TEMP 97.9
[2021-12-05 07:58] LABS: PLATELET COUNT 285 K/uL (152-353)
[2021-12-05 11:33] VITALS: BP 145/68; TEMP 97.7
[2021-12-05 15:33] VITALS: BP 116/57; TEMP 97.6
[2021-12-05 20:00] VITALS: BP 119/63; TEMP 97.9
[2021-12-06] VITALS: BP 153/73; TEMP 97.5
[2021-12-06 04:00] VITALS: BP 110/68; TEMP 97.6
[2021-12-06 08:00] VITALS: BP 144/82; TEMP 97.6
== END 2021-12-06 10:40 | disposition home health service (06) | DRG 178 ==
LOC: MED/SURG 13:45
PROVIDERS: ADMIT Family Medicine; ATTEND Family Medicine
DX: J15.212 Pneumonia due to Methicillin resistant Staphylococcus aureus (principal); J44.0 Chronic obstructive pulmonary disease with (acute) lower respiratory infection; J44.1 Chronic obstructive pulmonary disease with (acute) exacerbation; Z99.81 Dependence on supplemental oxygen; M54.59 Other low back pain; D64.89 Other specified anemias; F41.8 Other specified anxiety disorders; R53.1 Weakness; N39.498 Other specified urinary incontinence; I11.0 Hypertensive heart disease with heart failure; I50.9 Heart failure, unspecified; R73.03 Prediabetes; E78.49 Other hyperlipidemia; M81.8 Other osteoporosis without current pathological fracture; M85.80 Other specified disorders of bone density and structure, unspecified site
CPT/HCPCS: 36415; 80053; 81002; 82550; 83036; 83880; 84439; 84443; 84484; 85027; 87040; 87070; 87077; 87185; 87186; 87205; 87635; 93005; 94664; 94667; 94760; J0456; J1650; J1940; J1956; J2930; J3490; U0003

== ENCOUNTER 2021-12-27 13:45 | Emergency (ER) | payer OTHER ==
[~2021-12-27] VITALS: Ht 165.1 cm; Wt 76.2 kg
[~2021-12-27 13:45] MED LIST changes: +ALLER-TEC10 MG PO; +IPRATROPIUM/ INH; +LISI5TAB10 PO
[2021-12-27 15:28] LABS: POTASSIUM 4.1 mmol/L (3.6-5.2)
[2021-12-27 15:31] LABS: PLATELET COUNT 231 K/uL (152-353)
[2021-12-27 21:45] VITALS: BP 159/75; TEMP 97.2
== END 2021-12-27 21:45 | disposition short-term general hospital (02) ==
LOC: ED 13:45
PROVIDERS: Emergency Medicine Emergency Medical Services
PROC: 0T9B70Z Drainage of Bladder with Drainage Device, Via Natural or Artificial Opening (ICD-10-PCS; principal; 2021-12-27)
DX: S72.011A Unspecified intracapsular fracture of right femur, initial encounter for closed fracture (principal); W18.39XA Other fall on same level, initial encounter; Y92.098 Other place in other non-institutional residence as the place of occurrence of the external cause; Z11.52 Encounter for screening for COVID-19
CPT/HCPCS: 51702; 80053; 81002; 85027; 85610; 87635; 96360; 96361; 96374; 96375; 96376; 99284; J2270; J2405; U0003

== ENCOUNTER 2021-12-31 14:46 | Inpatient (IN) | payer OTHER | END 2022-01-20 09:08 | disposition still patient (30) | LOC: PAVB 14:46 | PROVIDERS: ADMIT Internal Medicine Endocrinology, Diabetes & Metabolism; ATTEND Internal Medicine Endocrinology, Diabetes & Metabolism | DX: S72.011D Unspecified intracapsular fracture of right femur, subsequent encounter for closed fracture with routine healing (principal); M62.81 Muscle weakness (generalized); R26.2 Difficulty in walking, not elsewhere classified; R26.81 Unsteadiness on feet; R27.9 Unspecified lack of coordination; Z74.1 Need for assistance with personal care; M25.511 Pain in right shoulder; J96.11 Chronic respiratory failure with hypoxia | CPT/HCPCS: 87081 ==

== ENCOUNTER 2022-01-20 13:47 | Inpatient (IN) | payer OTHER | END 2022-01-28 13:54 | disposition home or self-care (01) | LOC: PAVB 13:47 | PROVIDERS: ADMIT Internal Medicine Endocrinology, Diabetes & Metabolism; ATTEND Internal Medicine Endocrinology, Diabetes & Metabolism | DX: S72.011D Unspecified intracapsular fracture of right femur, subsequent encounter for closed fracture with routine healing (principal); M62.81 Muscle weakness (generalized); R26.2 Difficulty in walking, not elsewhere classified; R26.81 Unsteadiness on feet; R27.9 Unspecified lack of coordination; Z74.1 Need for assistance with personal care; M25.511 Pain in right shoulder; J96.11 Chronic respiratory failure with hypoxia ==

== ENCOUNTER 2022-06-21 11:37 | Outpatient (CLI) | payer OTHER ==
[2022-06-21 11:57] LABS: PLATELET COUNT 251 K/uL (152-353)
[2022-06-21 12:58] LABS: POTASSIUM 4.2 mmol/L (3.6-5.2)
== END 2022-06-21 19:21 | disposition home or self-care (01) ==
LOC: LAB 11:37
PROVIDERS: ATTEND Internal Medicine Endocrinology, Diabetes & Metabolism
DX: I11.0 Hypertensive heart disease with heart failure (principal); I50.9 Heart failure, unspecified; J44.9 Chronic obstructive pulmonary disease, unspecified; J96.11 Chronic respiratory failure with hypoxia; E78.49 Other hyperlipidemia; Z79.899 Other long term (current) drug therapy; E53.8 Deficiency of other specified B group vitamins; E55.9 Vitamin D deficiency, unspecified
CPT/HCPCS: 80053; 80061; 82306; 82607; 82746; 83036; 84439; 84443; 85027

== ENCOUNTER 2022-08-11 11:36 | Outpatient (CLI) | payer OTHER | END 2022-08-11 20:57 | disposition home or self-care (01) | LOC: LAB 11:36 | PROVIDERS: ATTEND Internal Medicine Endocrinology, Diabetes & Metabolism | DX: N39.0 Urinary tract infection, site not specified (principal); R41.82 Altered mental status, unspecified | CPT/HCPCS: 81002; 87077; 87086; 87088; 87186 ==

== ENCOUNTER 2022-10-04 13:25 | Outpatient (CLI) | payer OTHER | END 2022-10-04 20:49 | disposition home or self-care (01) | LOC: LAB 13:25 | PROVIDERS: ATTEND Internal Medicine Endocrinology, Diabetes & Metabolism | DX: R30.0 Dysuria (principal); R41.82 Altered mental status, unspecified; N39.0 Urinary tract infection, site not specified | CPT/HCPCS: 81002; 87086; 87088 ==

== ENCOUNTER 2023-03-07 10:29 | Observation (INO) | payer OTHER ==
[2023-03-07] VITALS (8 sets, daily range): BP systolic 95–157; BP diastolic 45–78; TEMP 97.6–98.4; Ht 162.6 cm; Wt 62.2 kg
[~2023-03-07] VITALS: Ht 162.6 cm; Wt 62.2 kg
[2023-03-07 10:55] LABS: PLATELET COUNT 368 K/uL (152-353)
[2023-03-07 11:05] LABS: POTASSIUM 3.6 mmol/L (3.6-5.2)
[2023-03-07] MEDS ORDERED: CELEBREX100 MG PO (15:09)
[2023-03-07] MEDS ORDERED: MIRALAX17 GM PO (15:22)
[2023-03-07] MEDS ORDERED: MULTIVITAMI1 PO (15:23)
[2023-03-07] MEDS ORDERED: FLUTMIS6 INH (15:23)
[2023-03-08 03:43] VITALS: BP 145/74; TEMP 98.6
[2023-03-08 05:29] LABS: PLATELET COUNT 298 K/uL (152-353)
[2023-03-08 05:36] LABS: POTASSIUM 3.9 mmol/L (3.6-5.2)
[2023-03-08 08:00] VITALS: BP 175/97; TEMP 98.8
[2023-03-08 12:00] VITALS: BP 172/78; TEMP 98.7
[2023-03-08 16:00] VITALS: BP 141/66; TEMP 99.5
[2023-03-08 20:00] VITALS: BP 138/60; TEMP 98.7
[2023-03-09] VITALS (7 sets, daily range): BP systolic 90–176; BP diastolic 55–93; TEMP 98–102.6
[2023-03-09 05:35] LABS: PLATELET COUNT 313 K/uL (152-353)
[2023-03-10 03:41] VITALS: BP 113/64; TEMP 98.2
[2023-03-10 04:53] LABS: POTASSIUM 3.7 mmol/L (3.6-5.2)
[2023-03-10 04:57] LABS: PLATELET COUNT 267 K/uL (152-353)
[2023-03-10 08:00] VITALS: BP 140/67; TEMP 98.2
[2023-03-10 12:00] VITALS: BP 153/70; TEMP 98.6
[2023-03-10 16:00] VITALS: BP 168/81; TEMP 100.8
== END 2023-03-10 16:59 | disposition swing bed (61) ==
LOC: ED 10:29 → MED/SURG 12:53
PROVIDERS: Family Medicine; ADMIT Nurse Practitioner Family; ATTEND Internal Medicine Endocrinology, Diabetes & Metabolism
DX: J18.9 Pneumonia, unspecified organism (principal); N39.0 Urinary tract infection, site not specified; B95.62 Methicillin resistant Staphylococcus aureus infection as the cause of diseases classified elsewhere; B96.29 Other Escherichia coli [E. coli] as the cause of diseases classified elsewhere; F03.90 Unspecified dementia, unspecified severity, without behavioral disturbance, psychotic disturbance, mood disturbance, and anxiety; E87.1 Hypo-osmolality and hyponatremia; D50.8 Other iron deficiency anemias; G89.29 Other chronic pain; E87.6 Hypokalemia; R50.9 Fever, unspecified; R41.0 Disorientation, unspecified; M19.90 Unspecified osteoarthritis, unspecified site; R53.81 Other malaise; E83.42 Hypomagnesemia; E86.0 Dehydration; R19.7 Diarrhea, unspecified; R10.9 Unspecified abdominal pain; R53.1 Weakness; K56.41 Fecal impaction; J44.1 Chronic obstructive pulmonary disease with (acute) exacerbation; I10 Essential (primary) hypertension; F41.8 Other specified anxiety disorders
CPT/HCPCS: 36415; 80048; 80053; 81000; 83690; 83735; 83880; 84100; 84484; 85027; 87070; 87077; 87086; 87088; 87185; 87186; 87205; 87324; 87449; 94664; 94667; 94668; 94760; 96360; 96361; 96367; 99221; 99284; G0378; J0132; J0456; J0696; J1650; J2060; J3370; J3475; J3480; Q9963

== ENCOUNTER 2023-07-07 08:51 | Outpatient (CLI) | payer OTHER ==
[~2023-07-07 08:51] MED LIST changes: +ACET-206 PO; +CEFU500T2 PO; +CELEBREX100 MG PO; +GABA400C2 PO; +MEGE40TA32 PO; +MIRALAX17 GM PO; +MULTIVITAMI1 PO; +MULTIVITAMIN1 TA1 PO; +NYST100016 TOP; +QUET25TA2 PO; +SODI1TAB PO
[2023-07-07] MEDS ORDERED: ENSURE PLUS PO ×2 (18:21)
== END 2023-07-07 20:03 | disposition home or self-care (01) ==
LOC: RAD 08:51
PROVIDERS: ATTEND Internal Medicine
DX: R09.02 Hypoxemia (principal)

== ENCOUNTER 2023-07-07 13:30 | Inpatient (IN) | payer OTHER ==
[~2023-07-07] VITALS: Ht 167.6 cm; Wt 50.6 kg
[2023-07-07 13:35] VITALS: BP 100/43; TEMP 97.9
[2023-07-07 14:30] LABS: PLATELET COUNT 473 K/uL (152-353)
[2023-07-07 14:38] LABS: POTASSIUM 3.8 mmol/L (3.6-5.2)
[2023-07-07] MEDS ORDERED: Ondansetron HCl 4 MG INJ INJ ONE (15:24)
[2023-07-07] MEDS ORDERED: CEFTRIAXONE SODIUM 1,000 MG in SOD. CHLORIDE 0.9% 50 ML IVPB ONE (15:24)
[2023-07-07] MEDS ORDERED: SOD. CHLORIDE 0.9% 50 ML IV ONE (15:26)
[2023-07-07] MEDS ORDERED: CEFTRIAXONE SODIUM 1,000 MG IV ONE (15:27)
[2023-07-07] MEDS ORDERED: IPRATROPIUM-ALBUTEROL 1 SOL SOL INH SCH (16:00)
[2023-07-07 17:35] VITALS: BP 117/84; TEMP 98.4
[2023-07-07 17:42] VITALS: BP 117/84; TEMP 98.4; Ht 167.6 cm; Wt 50.6 kg
[2023-07-07] MEDS ORDERED: LEVOFLOXACIN IN D5W 50 ML IVPB SCH (18:00)
[2023-07-07] MEDS ORDERED: ENSURE PLUS PO ×2 (18:21)
[2023-07-07] MEDS ORDERED: SODIUM CHLORIDE 500 ML IV ONE (19:38)
[2023-07-07 20:00] VITALS: BP 110/53; TEMP 97.4
[2023-07-07] MEDS ORDERED: ENOXAPARIN SODIUM 60 MG SC SCH (21:00)
[2023-07-07] MEDS ORDERED: DOXYCYCLINE HYCLATE 100 MG in SODIUM CHLORIDE 0.9% 100 ML IV SCH (21:00)
[2023-07-08] VITALS: BP 127/62; TEMP 97.5
[2023-07-08 04:00] VITALS: BP 129/67; TEMP 97.9
[2023-07-08 04:45] LABS: PLATELET COUNT 371 K/uL (152-353)
[2023-07-08 04:57] LABS: POTASSIUM 3.9 mmol/L (3.6-5.2)
[2023-07-08 08:00] VITALS: BP 102/61; TEMP 97.9
[2023-07-08] MEDS ORDERED: FUROSEMIDE 20 MG/2 ML IVP ONE (09:00)
[2023-07-08 12:00] VITALS: BP 111/65; TEMP 98.3
[2023-07-08 16:00] VITALS: BP 124/73; TEMP 97.8
[2023-07-08 20:00] VITALS: BP 147/76; TEMP 98.6
[2023-07-08] MEDS ORDERED: QUETIAPINE 25 MG TAB PO SCH (21:00)
[2023-07-08] MEDS ORDERED: SODIUM CHLORIDE 1 GM TAB PO SCH (21:00)
[2023-07-08] MEDS ORDERED: GABAPENTIN 400 MG CAP PO SCH (21:00)
[2023-07-08] MEDS ORDERED: ATENOLOL 50 MG TAB PO SCH (21:00)
[2023-07-09] VITALS: BP 142/80; TEMP 98.2
[2023-07-09 04:00] VITALS: BP 138/70; TEMP 98.2
[2023-07-09 06:17] LABS: PLATELET COUNT 410 K/uL (152-353)
[2023-07-09 06:24] LABS: POTASSIUM 3.5 mmol/L (3.6-5.2)
[2023-07-09 08:00] VITALS: BP 124/77; TEMP 97.6
[2023-07-09] MEDS ORDERED: DOXYCYCLINE HYCLATE 100 MG IV ONE ×2 (08:25→20:15)
[2023-07-09] MEDS ORDERED: [UNRECOGNIZED DRUG - OTHER] PO SCH (09:00)
[2023-07-09] MEDS ORDERED: LISINOPRIL 5 MG TAB PO SCH (09:00)
[2023-07-09] MEDS ORDERED: GABAPENTIN 400 MG CAP PO SCH (09:00)
[2023-07-09 12:00] VITALS: BP 126/63; TEMP 98.6
[2023-07-09] MEDS ORDERED: [UNRECOGNIZED DRUG - OTHER] XX ONE (13:01)
[2023-07-09 16:00] VITALS: BP 144/76; TEMP 97.3
[2023-07-09 20:00] VITALS: BP 135/75; TEMP 97.6
[2023-07-09] MEDS ORDERED: SODIUM CHLORIDE 500 ML IV ONE (20:44)
[2023-07-10] VITALS: BP 122/68; TEMP 97.8
[2023-07-10 04:00] VITALS: BP 134/74; TEMP 97.9
[2023-07-10 05:27] LABS: PLATELET COUNT 404 K/uL (152-353)
[2023-07-10 05:33] LABS: POTASSIUM 3.5 mmol/L (3.6-5.2)
[2023-07-10 08:26] VITALS: BP 119/71; TEMP 97.5
[2023-07-10 11:27] VITALS: BP 123/64; TEMP 97.8
[2023-07-10 15:51] VITALS: BP 121/70; TEMP 98.2
[2023-07-10 20:00] VITALS: BP 130/70; TEMP 98.3
[2023-07-11] VITALS: BP 138/71; TEMP 98.4
[2023-07-11 05:28] LABS: PLATELET COUNT 442 K/uL (152-353)
[2023-07-11 05:37] LABS: POTASSIUM 3.3 mmol/L (3.6-5.2)
[2023-07-11 07:53] VITALS: BP 127/76; TEMP 98.6
[2023-07-11] MEDS ORDERED: DOXYCYCL HYC100 M2 PO ×2 (09:50)
[2023-07-11] MEDS ORDERED: POTASSIUM CHL 20 MEQ TAB PO SCH (10:00)
== END 2023-07-11 11:18 | DRG 193 ==
LOC: ED 13:30 → MED/SURG 15:49
PROVIDERS: ADMIT Internal Medicine Endocrinology, Diabetes & Metabolism; ATTEND Internal Medicine Endocrinology, Diabetes & Metabolism
DX: J18.9 Pneumonia, unspecified organism (principal); J96.21 Acute and chronic respiratory failure with hypoxia; L03.115 Cellulitis of right lower limb; I50.9 Heart failure, unspecified; J44.9 Chronic obstructive pulmonary disease, unspecified; F41.8 Other specified anxiety disorders; M19.90 Unspecified osteoarthritis, unspecified site; I11.0 Hypertensive heart disease with heart failure; R05.9 Cough, unspecified; Z87.891 Personal history of nicotine dependence; D64.89 Other specified anemias
CPT/HCPCS: 36415; 80048; 80053; 83605; 85027; 85379; 94664; 94760; 96361; 96365; 96367; 96372; 96375; 99284; J1956; J0696; J1650; J1940; J2405; J3490